=== PATIENT | male | born 1960 | race Caucasian/White ===

== ENCOUNTER 2024-08-17 20:48 | Emergency (ER) | payer OTHER, BC, SELFPAY ==
--- NOTE | ~2024-08-17 | CT_ITS ---
CLINICAL HISTORY: Epigastric Pain; Elevated Lipase CT abdomen and pelvis with contrast Comparison: None provided Findings: Lung bases clear. No acute bony abnormalities. Midline upper abdominal wall ventral hernia. This contains fat without acute finding. Pancreatic head edema with adjacent stranding. No other focal pancreatic abnormality identified. Liver and spleen within normal limits. Cholecystectomy. Adrenal glands unremarkable. No significant focal renal abnormalities. Renal cysts without stones or hydronephrosis. Abdominal aorta is normal in caliber. No free fluid or adenopathy in the pelvis. No diverticulitis. Appendix unremarkable. Impression: Acute pancreatitis involving pancreatic head This document has been electronically signed by: Triston Leung MD on 08/17/2024 23:46:09
[2024-08-17 20:52] VITALS: BP 151/78; PULSE 89; RESP 17; TEMP 36.7; O2SAT 99; BMI 36.1
--- NOTE | 2024-08-17 21:06 | ED_ITS ---
HPI - Abdominal Pain General Chief Complaint: Abdominal Pain Stated Complaint: abd pain over 2 weeks has a hernia Time Seen by Provider: 08/17/24 21:03 Source: patient Mode of arrival: ambulatory Limitations: no limitations History of Present Illness ED Provider: Wisam LANTIGUA HPI narrative: The patient is a 64-year-old male with history of cholecystectomy 30 years ago and previous remote episode of diverticulitis, presenting to the ED reporting for the past 2 weeks he has been experiencing waxing and waning epigastric abdominal discomfort with associated cough and postprandial gagging/dry heaving which occurs more frequently when lying down at night or reclining in his recliner after eating. The patient reports he has also experienced some very firm stools but denies overt constipation, last moved his bowels today. The patient denies associated fever/chills, chest pain, shortness of breath, hemoptysis, hematemesis, hematochezia, melena, dysuria, or hematuria. The patient reports he underwent a screening colonoscopy in April which showed diverticulosis without diverticulitis, no other findings. The patient did not undergo endoscopy at that time. The patient reports he purchased [id number] Pepcid yesterday, took 1 tablet yesterday and 1 tablet today with some improvement in pain. Patient reports however he has suffered from a ventral hernia for many years, patient reports he became concerned regarding his symptoms and his existing hernia after performing an Internet search which prompted ED evaluation today. The patient denies tenderness of the hernia, denies any discoloration or inability to reduce the hernia. Related Data Previous Rx's ?Medication ?Instructions ?Recorded famotidine 20 mg tablet (Pepcid) 20 mg PO BID #28 tabs 08/18/24 omeprazole 20 mg capsule,delayed 20 mg PO DAILY 2 week s #14 caps 08/18/24 release Allergies Allergy/AdvReac Type Severity Reaction Status Date / Time No Known Allergies Allergy Mild N/A Verified 08/17/24 20:56 Review of Systems Review of Systems Yes all other systems are reviewed and are negative [facility] Social History Social History Alcohol intake: current Alcohol intake frequency: 0-2 drinks per day Alcohol type: beer Smoked in Last 30 Days: Yes Use of substances other than those prescribed or required for medical reasons: No Advance Directives: No Advance Directives Information Provided: No Do you have a plan to hurt others: No Plan Physical Exam ED Vital Signs: Vital Signs - 24 hr 08/17/24 20:52 08/17/24 23:43 Temperature 98.1 F 98.1 F Pulse Rate 89 68 Respiratory Rate 17 16 Blood Pressure 151/78 H 129/67 Pulse Oximetry 99 97 Oxygen Delivery Method Room Air Room Air BMI result Body Mass Index 36.1 CONSTITUTIONAL: The patient appears non-toxic, well nourished and in no acute distress. Vital signs as documented. HEAD: Atraumatic, normocephalic. EYES: EOMs grossly intact, pupils equal, conjunctiva clear, no exudate. ENT: Nares patent, no discharge. Airway patent, no audible stridor, visible mucosa is pink and moist without noted lesions. NECK: Trachea is midline, no obvious masses or gross abnormalities. CHEST: Symmetric movement, normal appearance. LUNGS: LS present and CTAB, no w/r/r. Non-labored work of breathing. CARDIAC: Regular Rhythm, S1/S2 appreciated, no murmurs, rubs or gallops. ABDOMEN: Abdomen soft x4 quadrants, there is a nontender, skin colored ventral hernia noted in the midline immediately superior to the umbilicus, there is tenderness to palpation of the epigastrium, negative rebound, no other tenderness throughout, no palpable masses or organomegaly. : Deferred. EXTREMITIES: Normal tone, moves all extremities spontaneously without reported pain. No obvious acute injury or deformity noted. NEURO: Alert and oriented x3, CN II-XII appear grossly intact. Cerebellar Functioning grossly intact. No obvious sensory or motor deficits. Speech clear and appropriate. PSYCH: normal affect, appropriate eye contact, fluid speech, with appropriate response to questioning. No reported suicidality or homicidality. SKIN: Warm, dry, color appropriate, normal turgor. No rashes noted. Medical Decision Making Medical Decision Making MDM Narrative: 9:33 PM 08/17/2024 (Desmond LANTIGUA): The patient is a 64-year-old male presenting to the ED for evaluation of epigastric abdominal pain which has been waxing and waning over the past 2 weeks, increased with lying down at night or reclining in his recliner after eating, patient reports associated nagging cough which results in post-tussive dry heaving without associated vomiting. The patient denies associated fever/chills, chest pain, shortness of breath, hematochezia, melena, hematuria, hematemesis, dysuria, or other acute somatic complaint. The patient's exam is reassuring, mild epigastric abdominal tenderness, no tenderness or discoloration of the patient's known chronic ventral hernia, there was no other abdominal tenderness appreciated. Patient reports obtaining Pepcid over the counter yesterday with some improvement in symptoms, patient is hemodynamically stable and afebrile. The patient's presentation is consistent with likely gastritis/GERD. Patient will be treated with a GI cocktail, basic laboratory evaluation will be obtained, and pending unremarkable laboratory evaluation and improvement symptoms following GI cocktail the patient will be appropriate for discharge home with Pepcid, omeprazole, prn Maalox, and outpatient follow up with PCP for GI referral for endoscopy as indicated. 9:43 PM 08/17/2024 (Desmond LANTIGUA): The patient's laboratory evaluation shows mildly elevated lipase of 152, no old for comparison, no other LFT abnormalities. The patient's CBC shows mild leukocytosis of 10.9, no evidence of anemia , electrolyte abnormality, or ANA. Patient will be reassessed, unless patient has complete resolution of symptoms following GI cocktail the patient will be sent for CT to rule out pancreatic pathology. 11:56 PM 08/17/2024 (Desmond LANTIGUA): The patient's CT abdomen and pelvis shows evidence of acute pancreatitis involving the pancreatic head. We will add on ethanol level and lipid panel, we will administer IV fluid hydration while awaiting these results. 12:12 AM 08/18/2024 (Desmond LANTIGUA): Upon re-evaluation the patient reports he still is feeling markedly improved in symptoms following GI cocktail. Upon repeat interviewed the patient does advised that he drinks approximately 3 alcoholic beverages daily since retiring. The patient's symptoms may be due to a combination of alcohol induced gastritis and alcohol induced pancreatitis. The patient's CT shows no evidence of pseudocyst or other acute pathology. The patient is hemodynamically stable and afebrile. Patient is tolerating p.o. fluids and solids. The patient is requesting discharge. The patient will receive IV fluid hydration, we will await results of lipid panel and ethanol. Pending no significant abnormalities in remaining laboratory workup, the patient will be discharged to follow up with his PCP. The patient has been advised to decrease his alcohol intake as this is likely contributing to his symptoms. The patient will still be discharged with omeprazole and Pepcid for gastritis. Patient has been educated at length of reasons to return to the ED including but not limited to fever greater than 100.4, severe recurrent nausea and vomiting, intolerable/intractable abdominal pain, or sudden change in his pain. Admission/Observation Consideration of admission/observation: Escalation of care including admission/observation considered Lab Data MDM Lab Attestation statement: I reviewed the patient's lab results. 08/17/24 21:11 08/17/24 21:11 Labs: Lab Results 08/17/24 Range/Units 21:11 WBC 10.9 H (4.8-10.8) X10*3/uL RBC 4.75 (4.60-5.80) X10*6/uL Hgb 14.9 (14.0-18.0) g/dl Hct 41.5 L (42.0-52.0) % MCV 87.4 (80.0-98.0) fL MCH 31.4 (27.0-33.0) pg MCHC 35.9 (31.0-36.0) g/dl RDW 11.9 (11.0-16.0) % Plt Count 232 (160-400) X10*3/uL MPV 9.0 L (9.4-12.4) fL Immature Gran % (Auto) 0.4 (0.0-0.4) % Neut % (Auto) 75.0 H (45-73) % Lymph % (Auto) 18.8 L (20-40) % Luce % (Auto) 4.4 (2-11) % Eos % (Auto) 1.0 (0-4) % Baso % (Auto) 0.4 (0-2) % Lymph # (Auto) 2.1 (1.2-4.9) X10*3/uL Luce # (Auto) 0.5 (0.1-1.2) X10*3/uL Eos # (Auto) 0.1 (0.0-0.4) X10*3/uL Baso # (Auto) 0.0 (0.0-0.2) X10*3/uL Abs Immat Gran (auto) 0.04 H (0.00-0.03) X10*3/uL Absolute Neuts (auto) 8.2 (2.0-8.3) x10*3/uL Absolute Nucleated RBC 0.000 (0.0-0.012) X10*3/uL Nucleated RBC % (auto) 0.0 (0.0-0.2) /100WBC Sodium 130 L (135-145) mmol/L Potassium 3.6 (3.3-5.1) mmol/L Chloride 96 (96-108) mmol/L Carbon Dioxide 24 (22-29) mmol/L Anion Gap 14 (12-20) BUN 12 (9-16) mg/dL Creatinine 0.70 (0.5-1.4) mg/dL Estim Creat Clear Calc 153.2 Estimated GFR > 60 Random Glucose 121 H (60-115) mg/dL Calcium 9.1 (8.4-10.2) mg/dL Magnesium 2.1 (1.6-2.6) mg/dL Total Bilirubin 0.7 (0.0-1.0) mg/dL AST 25 (5-37) U/L ALT 33 (0-40) U/L Alkaline Phosphatase 80 (39-117) U/L Total Protein 7.3 (6.5-8.0) g/dL Albumin 4.7 (3.5-5.0) g/dL Triglycerides 161 H (<150) mg/dL Cholesterol 146 (<200) mg/dL LDL Cholesterol, Calc 66 (<100) mg/dL HDL Cholesterol 48 (>40) mg/dL Lipase 152 H (8-78) U/L Urine Color Yellow Urine Appearance Clear Urine pH 6.5 (5.0-9.0) Ur Specific Logan 1.010 (1.005-1.025) Urine Protein Negative (Neg-Trace) mg/dL Urine Glucose (UA) Negative (Negative) mg/dL Urine Ketones Negative (Negative) mg/dL Urine Blood Trace H (Negative) Urine Nitrite Negative (Negative) Ur Leukocyte Esterase Negative (Negative) Urine RBC 3-5 H (0-2) /HPF Urine WBC 0-5 (0-5) /HPF Ur Squamous Epith Cells 0-2 (0-2) /HPF Urine Bacteria None Seen (None Seen) Hyaline Casts 0-2 (0-2) /LPF Ethyl Alcohol < 10 mg/dL Radiology Impression Discussion of test interpretation with radiology: I have reviewed the radiologist's reading. Radiologist Impression: CLINICAL HISTORY: Epigastric Pain; Elevated Lipase CT abdomen and pelvis with contrast Comparison: None provided Findings: Lung bases clear. No acute bony abnormalities. Midline upper abdominal wall ventral hernia. This contains fat without acute finding. Pancreatic head edema with adjacent stranding. No other focal pancreatic abnormality identified. Liver and spleen within normal limits. Cholecystectomy. Adrenal glands unremarkable. No significant focal renal abnormalities. Renal cysts without stones or hydronephrosis. Abdominal aorta is normal in caliber. No free fluid or adenopathy in the pelvis. No diverticulitis. Appendix unremarkable. Impression: Acute pancreatitis involving pancreatic head This document has been electronically signed by: Triston Leung MD on 08/17/2024 23:46:09 Prescription Management I considered prescription management with: Pain Medication and Antibiotic Chronic Conditions Patient?s care impacted by: Hypertension Medications Administered Discontinued Medications Generic Name Dose Route Start Last Admin Trade Name Freq PRN Reason Stop Dose Admin Al Hydroxide/Mg Hydroxide 30 ml 08/17/24 21:27 08/17/24 21:37 Magnesium Hydrox/Alum Hydrox 30 Ml Oral.Susp PO 08/17/24 21:28 30 ml ONCE ONE Administration Famotidine 20 mg 08/17/24 21:27 08/17/24 21:37 Famotidine 20 Mg Tablet PO 08/17/24 21:28 20 mg ONCE ONE Administration Sodium Chloride 1,000 mls @ 999 mls/hr 08/17/24 23:45 08/18/24 00:22 Ns IV 08/18/24 00:45 999 mls/hr .Q1H1M [place] Administration Iohexol 100 ml 08/17/24 22:52 08/17/24 22:52 Iohexol 350 Mg/Ml 100 Ml Infus..Btl IV 08/17/24 22:53 100 ml ONCE ONE Administration Lidocaine HCl 15 ml 08/17/24 21:27 08/17/24 21:37 Lidocaine Hcl Viscous 2 % 15 Ml Solution PO 08/17/24 21:28 15 ml ONCE ONE Administration Discharge Plan Discharge Clinical Impression: Pancreatitis, Gastritis and duodenitis Patient Disposition: Home, Self-Care Instructions: Gastritis (ED), Pancreatitis (ED), Diet for Stomach Ulcers and Gastritis (ED) Additional Instructions: Thank you for choosing [facility] Emergency Department for your care today. Your laboratory evaluation today was largely reassuring with the exception of a mildly elevated lipase of 157. As a result we performed a CT of your abdomen which showed evidence of inflammation of the head of your pancreas, a condition known as pancreatitis. Your CT thankfully shows no evidence of abscess, cyst, pseudocyst, necrosis, or infection of your pancreas. Your symptoms did improve following a GI cocktail, indicating that you may also be suffering from some alcohol-induced gastritis (inflammation of your stomach) in addition to your pancreatitis. Seeing as your CT shows no complications of your pancreatitis, your symptoms have improved with a GI cocktail, your vital signs are stable, and you are currently able to tolerate eating and drinking without vomiting, there is no indication for admission to the hospital or continued ED observation, and it is safe to discharge you home. It is extremely important that you significantly decrease your alcohol consumption, or stop drinking alcohol altogether. Alcohol consumption will continue to re-aggravate your pancreatitis symptoms and is also likely contributing to your stomach inflammation/gastritis. Regular or heavy alcohol consumption can also increase your risk for permanent liver damage leading to a decreased quality of life and otherwise avoidable medical complications and injury. Please take omeprazole daily and Pepcid twice daily as prescribed for the next 2 weeks. You can also use Maalox purchased [id number] as needed for additional symptoms. Please stay well hydrated and get plenty of rest. Please read the attached information regarding food and drank to avoid to reduce the amount of inflammation in your stomach. Please follow up with your primary care physician for re-evaluation, additional management of your symptoms, and continued preventative care. If you do not have a primary care physician, please call the [facility] at [phone] to establish a new primary care physician. While waiting to establish your new primary care physician, you can call our [facility] at [phone] for non-emergency needs. Please return to the emergency department if you develop a severe or sudden change in your symptoms, a fever over 100.4 that does not improve with Tylenol or Ibuprofen, recurrent vomiting, or any other new or worsening symptoms or concerns. Prescriptions: New famotidine [Pepcid] 20 mg tablet 20 mg PO BID Qty: 28 0RF omeprazole 20 mg capsule,delayed release(DR/EC) 20 mg PO DAILY 14 Days Qty: 14 0RF Print Language: Austrian
[2024-08-17 21:17] LABS: MANUAL DIFF FLAG NO
[2024-08-17 21:18] LABS: Hematocrit 41.5 % (42.0-52.0); Hemoglobin 14.9 g/dl (14.0-18.0); Imm Gran Abs Auto 0.04 X10*3/uL (0.00-0.03); Imm Gran Pct Auto 0.4 % (0.0-0.4); Lymphocytes Absolute Auto 2.1 X10*3/uL (1.2-4.9); Mean Corpuscular HGB Conc 35.9 g/dl (31.0-36.0); Mean Corpuscular Hemoglobin 31.4 pg (27.0-33.0); Mean Corpuscular Volume 87.4 fL (80.0-98.0); NRBC Abs Auto 0.000 X10*3/uL (0.0-0.012); NRBC Pct Auto 0.0 /100WBC (0.0-0.2); Platelet Count 232 X10*3/uL (160-400); Red Blood Count 4.75 X10*6/uL (4.60-5.80); White Blood Count 10.9 X10*3/uL (4.8-10.8)
[2024-08-17 21:20] LABS: Appearance Urine Clear; Glucose Urine UA Negative (Negative); PH 6.5 (5.0-9.0); Specific Gravity - Urine 1.010 (1.005-1.025); UMIC TRIGGER UACC YES
[2024-08-17 21:37] LABS: Alanine Aminotransferase 33 U/L (0-40); Albumin Level 4.7 g/dL (3.5-5.0); Alkaline Phosphatase 80 U/L (39-117); Anion Gap 14 (12-20); Aspartate Amino Transferase 25 U/L (5-37); Blood Urea Nitrogen 12 mg/dL (9-16); Calcium 9.1 mg/dL (8.4-10.2); Carbon Dioxide 24 mmol/L (22-29); Chloride 96 mmol/L (96-108); Creatinine Clr Calc Pharmacy 153.2; Estimated Glomerular Filt Rate > 60; Lipase 152 U/L (8-78); Magnesium 2.1 mg/dL (1.6-2.6); Potassium 3.6 mmol/L (3.3-5.1); Sodium 130 mmol/L (135-145); Total Protein 7.3 g/dL (6.5-8.0)
[2024-08-17] MEDS: Magnesium Hydrox/Alum Hydrox 30 ML ORAL.SUSP PO (21:37)
[2024-08-17] MEDS: Lidocaine HCl Viscous 2 % 15 ML SOLUTION PO (21:37)
--- NOTE | 2024-08-17 22:22 | PC.NURSE ---
pt reports some improvement in pain after PO medications, /. provider aware
[2024-08-17] MEDS: iohexoL 350 MG/ML 100 ML INFUS..BTL IV (22:52)
[2024-08-17 23:43] VITALS: BP 129/67; PULSE 68; RESP 16; TEMP 36.7; O2SAT 97
[2024-08-18 00:21] LABS: Cholesterol 146 mg/dL (<200); HDL Cholesterol 48 mg/dL (>40); Triglycerides 161 mg/dL (<150)
[2024-08-18 01:32] VITALS: BP 127/74; PULSE 65; RESP 18; TEMP 36.7; O2SAT 96
[2024-08-18 01:34] VITALS: BP 127/74; PULSE 65; RESP 18; TEMP 36.7; O2SAT 96
== END 2024-08-18 01:34 | disposition home or self-care (01) ==
PROVIDERS: Physician Assistant; Emergency Provider Emergency Medicine; PCP Physician Assistant Medical
DX: K85.90 Acute pancreatitis without necrosis or infection, unspecified (principal); K29.70 Gastritis, unspecified, without bleeding; K29.80 Duodenitis without bleeding; R10.2 Pelvic and perineal pain; Z51.81 Encounter for therapeutic drug level monitoring; R11.0 Nausea; Z79.899 Other long term (current) drug therapy
CPT/HCPCS: 36415; 74177; 80053; 80061; 80307; 81001; 83690; 83735; 85025; 96360; 99284; Q9967

== ENCOUNTER → 2024-08-17 22:22 | Outpatient (BNV) | payer BC, SELFPAY | PROVIDERS: Emergency Provider Emergency Medicine; PCP Physician Assistant Medical; Visit Provider Radiology Diagnostic Radiology | DX: K85.90 Acute pancreatitis without necrosis or infection, unspecified (principal) | CPT/HCPCS: 74177 ==